=== PATIENT | male | born 1975 | race Two or more races ===

== ENCOUNTER 2019-02-09 05:40 | Day surgery (SDC) | payer OTHER ==
[~2019-02-09 05:40] MED LIST: HUMIRA
[2019-02-09] MEDS ORDERED: PERCOCET 5-3251 EACH PO (12:47)
[2019-02-09] MEDS ORDERED: NEURONTIN300 MG PO (12:48)
[2019-02-09] MEDS ORDERED: COLACE100 MG PO (12:49)
== END 2019-02-09 17:25 | disposition home or self-care (01) ==
LOC: CIR.AMB 05:40
DX: K42.0 Umbilical hernia with obstruction, without gangrene (principal); K43.6 Other and unspecified ventral hernia with obstruction, without gangrene